=== PATIENT | male | born 1990 | race African-American/Black ===

== ENCOUNTER 2024-12-09 00:39 | Emergency (ER) | payer OTHER ==
[2024-12-09] MEDS ORDERED: Morphine 2 MG/ML VIAL ONE ×2 (01:00→05:50)
[2024-12-09] MEDS ORDERED: Ondansetron PF 4 MG/2 ML Vial ONE (01:01)
[2024-12-09 01:16] LABS: #Basophils 0.1 thou/uL (0.0-0.2); #Eosinophils 0.2 thou/uL (0.0-0.7); #Lymphocytes 1.7 thou/uL (1.20-3.40); #Monocytes 0.8 thou/uL (0.11-0.59); %Basophils 0.9 % (0.0-1.0); %Eosinophils 2.4 % (0.0-10.0); %Lymphocytes 19.4 % (21.0-51.0); %Neutrophils 68.2 % (42.0-75.0); Hematocrit 36.2 % (42.0-52.0); Hemoglobin 11.4 g/dL (14.0-18.0); Mean Corpuscular HGB CONC 31.5 g/dL (32.0-36.0); Mean Corpuscular Hemoglobin 27.5 pg (27.0-31.0); Mean Corpuscular Volume 87.3 fl (78.0-98.0); Mean Platelet Volume 6.6 fL (7.4-10.4); Platelet Count 217 10x3/uL (130-400); Red Blood Cell (RBC) Count 4.15 mill/uL (4.70-6.10); White Blood Cell (WBC) Count 8.7 10x3/uL (4.8-10.8)
[2024-12-09 01:34] LABS: ALT (SGPT) 102 U/L (Less than 45); AST (SGOT) 169 U/L (11-34); Albumin 3.2 g/dL (3.1-4.5); Alkaline Phosphatase 69 U/L (40-110); Anion Gap 15 mmol/L (10-20); BUN (Urea Nitrogen) 14 mg/dL (8.9-20.6); Bilirubin, Total 0.2 mg/dL (0.3-1.2); Calc. Creatinine Clearance 0 mL/min (70-130); Calcium 8.8 mg/dL (7.8-10.44); Carbon Dioxide 18 mmol/L (22-29); Chloride 104 mmol/L (98-107); Estimated GFR 122; Globulin 6.5 g/dL (2.4-3.5); Glucose 88 mg/dL (70-105); Lipase 21 U/L (8-78); Potassium 5.1 mmol/L (3.5-5.1); Protein, Total 9.7 g/dL (6.0-8.3); Sodium 132 mmol/L (136-145)
[2024-12-09] MEDS ORDERED: Iopamidol 370 76% 100 ML VIAL ONE (09:00)
== END 2024-12-09 06:15 | disposition short-term general hospital (02) ==
LOC: NAV ERS 00:39 → EEVIPCON 00:39 → NAV ERS 06:15
DX: S36.116A Major laceration of liver, initial encounter (principal); W50.1XXA Accidental kick by another person, initial encounter
CPT/HCPCS: 71260; 74177; 80053; 83690; 85025; 96374; 96375; 96376; J2272; J2405; Q9967